=== PATIENT | male | born 1955 | race Asian ===

== ENCOUNTER 2017-05-18 14:30 | Emergency (ER) | payer OTHER ==
[2017-05-18 14:42] VITALS: PULSE 70; TEMP 98.6; O2SAT 96
[2017-05-18] MEDS ORDERED: IBUPROFEN 600 MG TAB PO ONE (14:54)
--- NOTE | 2017-05-18 14:58 | EDPHY ---
General Narrative: CHIEF COMPLAINT: Right shoulder pain, rollerblading injury HISTORY OF PRESENT ILLNESS: Patient complains of right shoulder pain status post injury. He was rollerblading at 12:30 p.m. today when he fell. He landed awkwardly on his right arm. Sudden onset of right shoulder pain. [id number]. Worse with palpation and movement of the arm. Improved at rest. No numbness or tingling. No pain in the right elbow, wrist or hand. No head strike or loss of conscious. No neck pain, chest pain or back pain. No other associated complaints or modifying factors. ESTABLISHED ORTHOPEDIST: None REVIEW OF SYSTEMS: Ten systems reviewed and are negative unless otherwise noted in the HPI PAST MEDICAL HISTORY: None PAST SURGICAL HISTORY: None SOCIAL HISTORY: Nonsmoker. 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 Lives in [place] FAMILY HISTORY: Noncontributory EXAMINATION General Appearance: Alert, no distress Cardiovascular: Pulses normal throughout. Symmetric radial pulses 2+. Brisk cap refill Neurological: A&O, sensory symmetric, strength symmetric. No wrist drop in the affected arm. Strength is 5/5 in both arms at the elbow, wrist and fingers. Skin: Warm and dry, no rash. No petechiae or purpura. No lacerations abrasions or contusions Extremities: Tenderness of the entire right shoulder girdle. There is no tenderness of the right clavicle. No tenderness of the right scapula. Range of motion is limited due to pain. He does have flexion, extension of the shoulder. He is neurovascular intact distally with symmetric range of motion of the elbows, wrists and fingers. Psychiatric: Mood and affect normal DIFFERENTIAL DIAGNOSES: Including but not limited to sprain, strain, fracture, dislocation, AC separation MDM: 2:55 p.m. Acute right shoulder pain from injury. Neurovascular intact. X-ray has been ordered. Ibuprofen ordered. 3:20 p.m. X-ray as read by me reveals a greater tuberosity fracture and humeral neck fracture. I have re-evaluated the patient. He remains neuro intact. Orthopedics will be consulted. 3:30 p.m. X-ray has been read by radiologist as to rest the fracture with minimal displacement and humeral neck fracture. 3:43 p.m. Case discussed with on-call surgeon Dr. Tracey. He recommends the patient be placed in a shoulder immobilizer. He does not recommend that we attempt any splinting. He would like to see the patient in his office this week to discuss surgical intervention. 4:00 p.m. I discussed this plan with the patient. He is comfortable with this. He will be placed in a shoulder immobilizer. His pain is tolerable thus far he has not required any narcotic pain medication here. I provided prescription for Percocet should his pain worsen. We discussed ED precautions for neurovascular changes. He is comfortable this plan and discharged home stable condition. ED Precautions: Worsening pain. Erythema, edema, cyanosis, pallor, paresthesia or anesthesia. - Diagnostics Imaging Results: Imaging Impressions Shoulder X-Ray 05/18/17 14:54 Impression: 1. Fracture of the greater tuberosity along the superolateral aspect of the right humeral head with some rotation and displacement of the fracture component. 2. Fracture of the humeral neck is also suspected. - History Smoking Status: Never smoked - Objective Vital Signs: Initial Vital Signs Temperature (C) 98.6 F 05/18/17 14:38 Heart Rate 70 05/18/17 14:38 Respiratory Rate 14 05/18/17 14:38 Blood Pressure 153/90 H 05/18/17 14:38 O2 Sat (%) 96 05/18/17 14:38 O2 Delivery Mode Room Air Allergies/Adverse Reactions: No Known Allergies Allergy (Unverified 05/18/17 14:42) Home Medications: Medication Instructions Recorded oxyCODONE HCL/ACETAMINOPHEN 1 each PO Q4-6PRN PRN #15 tablet 05/18/17 [Percocet 5-325 mg Tablet] Medications Given: Discontinued Medications Ibuprofen (Motrin) 600 mg PO EDNOW ONE Stop: 05/18/17 14:55 Last Admin: 05/18/17 14:59 Dose: 600 mg Departure - Departure Disposition: Home, Routine, Self-Care Clinical Impression: Greater tuberosity of humerus fracture Qualifiers: Encounter type: initial encounter Fracture type: closed Fracture alignment: displaced Laterality: right Qualified Code(s): S42.251A - Displaced fracture of greater tuberosity of right humerus, initial encounter for closed fracture Humeral surgical neck fracture Qualifiers: Encounter type: initial encounter Fracture type: closed Fracture morphology: unspecified fracture morphology Fracture alignment: nondisplaced Laterality: right Qualified Code(s): S42.214A - Unspecified nondisplaced fracture of surgical neck of right humerus, initial encounter for closed fracture Condition: Good Instructions: Arm Fracture in Adults (ED), Proximal Humerus Fracture (ED) Additional Instructions: 1. Shoulder immobilizer as discussed 2. Pain medication as prescribed as needed 3. Follow up with Orthopedics in 1-2 days for definitive care 4. ED precautions as discussed Referrals: Raleigh Tracey MD [Medical Doctor] - As per Instructions MANDEEP ARCOS [Primary Care Provider] - As per Instructions Prescriptions: oxyCODONE HCL/ACETAMINOPHEN [Percocet 5-325 mg Tablet] 1 each PO Q4-6PRN PRN # 15 tablet PRN Reason: Pain, Breakthrough
[2017-05-18 16:20] VITALS: BP 148/88; RESP 18
== END 2017-05-18 16:23 | disposition home or self-care (01) ==
DX: S42.251A Displaced fracture of greater tuberosity of right humerus, initial encounter for closed fracture (principal); S42.214A Unspecified nondisplaced fracture of surgical neck of right humerus, initial encounter for closed fracture; V00.121A Fall from non-in-line roller-skates, initial encounter; Y99.8 Other external cause status; Y93.51 Activity, roller skating (inline) and skateboarding

== ENCOUNTER → 2017-12-16 | Outpatient (CLI) | payer OTHER ==
[~2017-12-16] MED LIST: IOPAMIDOL (ISOVUE-300) 100 ML BTL ONE
== END ==
LOC: FIMAGING 08:26
PROVIDERS: ATTEND Internal Medicine Gastroenterology
DX: K76.89 Other specified diseases of liver (principal)
CPT/HCPCS: Q9967